=== PATIENT | female | born 1940 | race Caucasian/White ===

== ENCOUNTER 2017-10-23 15:00 | Emergency (ER) | payer OTHER, MEDICARE ==
--- NOTE | 2017-10-23 15:16 | PDOC ---
History of Present Illness - General Chief Complaint: Allergic Reaction Stated Complaint: ALLERGIC REACTION Time Seen by Provider: 10/23/17 15:11 History Source: Patient Exam Limitations: No Limitations - History of Present Illness Initial Comments: 10/23/17 15:11 77 year old female with PMH HTN, asthma presenting to ED for allergic reaction. She states that yesterday at 1800 she went to her daughters house, who was having her hair chemically treated, and since then has felt lip tingling and tongue swelling. 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 She denies rash, chest pain, shortness of breath, neck swelling, lightheadedness or any other complaints. Pt states she took 2 benadryl last night and three this morning around 0600. Allergies - grass, formaldehyde, lisinopril, bee stings, cats Past History - Past Medical History Allergies/Adverse Reactions: Allergies Allergy/AdvReac Type Severity Reaction Status Date / Time bee venom protein (honey bee) Allergy Severe Verified 10/23/17 15:19 formaldehyde Allergy Severe Verified 10/23/17 15:11 levofloxacin [From Levaquin] Allergy Severe Verified 10/23/17 15:19 cat dander Allergy Intermediate Verified 10/23/17 15:19 Home Medications: Ambulatory Orders Albuterol 0.083% Nebulizer Re [Ventolin 0.083% Nebulizer Soln -] 1 neb NEB TID PRN 10/23/17 Albuterol Sulfate Inhaler - [Ventolin Hfa Inhaler -] 2 inh PO Q6H PRN 10/23/17 Aspirin Coated [Ecotrin -] 81 mg PO DAILY 10/23/17 EPINEPHrine (EPI-PEN 0.3MG) [Epipen 0.3MG -] 0.3 mg IM ASDIR PRN 10/23/17 Lisinopril 30 mg PO DAILY 10/23/17 Montelukast Sodium [Singulair] 10 mg PO DAILY 10/23/17 Omeprazole 40 mg PO DAILY 10/23/17 hydrOXYzine HCL [Atarax -] 50 mg PO TID #12 tablet 10/23/17 Review of Systems - Review of Systems Able to Perform ROS?: Yes Comments:: 10/23/17 15:14 General: denies fever, chills, night sweats, generalized weakness. HEENT: admits to tongue swelling, lip tingling. denies sore throat, rhinorrhea, ear pain. Heart: denies chest pain, palpitations, syncope, lower extremity swelling, diaphoresis. Respiratory: denies shortness of breath, cough, sputum production, hematemesis. Abdomen: denies abdominal pain, nausea, vomiting, diarrhea, constipation, blood in stool. : denies dysuria, increased urinary frequency, hematuria, urinary incontinence , flank pain. Back: denies back pain. Musculoskeletal: denies joint pain, muscle pain, joint swelling. Neurological: denies headache, dizziness, numbness, tingling, weakness. Skin: denies rash, laceration, abrasion. *Physical Exam - Physical Exam Comments: 10/23/17 15:14 Appearance: comfortable. ambulates unassisted. HEENT: head is normocephalic, atraumatic. EOMI. PERRLA. no tongue swelling. no lip swelling. oral mucosa moist. airway patent. Neck: supple. Full ROM. no swelling. Heart: regular rhythm. no murmurs, rubs or gallops. Lungs: no stridor. clear to auscultation bilaterally. no crackles, rhonchi or wheezing. Abdomen: soft, nontender. normal bowel sounds. no rebound, guarding, masses. Extremities: Peripheral pulses intact and equal. No lower extremity edema. Neurological: Alert. Oriented x3. CN 2-12 grossly intact. Moves all four extremities. Medical Decision Making - Medical Decision Making 10/23/17 15:15 77 year old female with PMH HTN, asthma presenting to ED for allergic reaction - lip tingling and tongue swelling. Initial Vital Signs Temp Pulse Resp BP Pulse Ox 97.6 F 51 L 18 165/73 100 10/23/17 15:09 10/23/17 15:09 10/23/17 15:09 10/23/17 15:09 10/23/17 15:09 Afebrile. No hypotension. No hypoxia. Examination is normal. No wheezing on auscultation. Airway patent, no stridor. No lip swelling, no tongue swelling. Hydroxyzine ordered. 10/23/17 16:01 Pt states lip tingling and tongue swelling has not worsened. She states she feels the same. I discussed the plan of care with the patient and her , with which they agree. Pt will be discharged with follow up instructions, allergy/ENT referral, prescription for hydroxyzine, and strict return precautions. *DC/Admit/Observation/Transfer Diagnosis at time of Disposition: Allergic reaction - Discharge Dispostion Disposition: HOME Condition at time of disposition: Good - Prescriptions Prescriptions: hydrOXYzine HCL [Atarax -] 50 mg PO TID #12 tablet - Referrals Referrals: Reggie Tafoya MD [Staff Physician] - - Patient Instructions Printed Discharge Instructions: DI for General Allergic Reactions Additional Instructions: You were seen today for allergic reaction. You were given Hydroxyzine, an anti-histamine. I have sent a prescription to your pharmacy for Hydroxyzine. Pick it up today and take it every 8 hours as needed for your lip tingling and tongue swelling. Follow up with your primary care physician within 5 days, and bring the paperwork given to you today with you. Call their office today, tell them you were seen in the Emergency Department, and make an appointment for this week. I have provided you with a referral for an ENT/Casing Crew. Follow up with your ENT/Casing Crew within 5 days, and bring the paperwork given to you today with you. Call their office today, tell them you were seen in the Emergency Department, and make an appointment for this week. Return to the Emergency Department for shortness of breath, drooling, chest pain , nausea, vomiting, passing out, increasing swelling, noisy breathing, or any other new, worsening or concerning symptoms. - Post Discharge Activity
[2017-10-23] MEDS ORDERED: hydrOXYzine HCL 25 MG TABLET (FP) PO ONE ×2 (15:22→15:26)
[2017-10-23 15:24] VITALS: BP 165/73; PULSE 51; TEMP 97.6; BMI 29.2
--- NOTE | 2017-10-23 17:11 | PDOC ---
Attending Attestation - Resident Resident Name: Jacklyn Lechuga - ED Attending Attestation I have performed the following: I have examined & evaluated the patient, The case was reviewed & discussed with the resident, I agree w/resident's findings & plan, Exceptions are as noted - HPI HPI: 10/23/17 17:08 ALLERGIC reaction. Breathing and some hair cosmetic yesterday and today she feels that her mouth and lips are swollen. No difficulty breathing or wheezing. No abdominal pain nausea vomiting or diarrhea. No skin rash. Taking Benadryl no significant past history nor review of systems. - Physicial Exam PE: 10/23/17 17:09 Physical exam is entirely normal. Afebrile, normal vital signs. No swelling or edema was visualized in the oropharynx tongue or lips. No facial edema or swelling. Lungs clear to P&A, full breath sounds bilaterally, no wheezes. Abdomen soft nontender without mass or organomegaly. Skin clear, no urticaria or other rash is apparent - Medical Decision Making 10/23/17 17:10 Impression: There is no evidence of a significant ALLERGIC reaction at present. Plan: Reassure. Continue antihistamine. Return if further symptoms develop. Fully ambulatory and in no distress respiratory or otherwise upon discharge to follow-up as directed
== END 2017-10-23 16:06 | disposition home or self-care (01) ==
LOC: FER 15:00
DX: T78.40XA Allergy, unspecified, initial encounter (principal); X58.XXXA Exposure to other specified factors, initial encounter
CPT/HCPCS: 99282-25